=== PATIENT | male | born 1985 | race Caucasian/White ===

== ENCOUNTER 2018-05-23 07:08 | Day surgery (SDC) | payer BC ==
[2018-05-23] MEDS ORDERED: PROPOFOL 60 ML (08:34)
[2018-05-23] MEDS ORDERED: LIDOCAINE 2% (SDV) 5 ML INJ (08:34)
== END 2018-05-23 15:29 | disposition home or self-care (01) ==
LOC: GIL 07:08
DX: D12.5 Benign neoplasm of sigmoid colon (principal); K21.0 Gastro-esophageal reflux disease with esophagitis; K29.70 Gastritis, unspecified, without bleeding; K64.8 Other hemorrhoids
CPT/HCPCS: 43239; 88305; 88312

== ENCOUNTER 2018-06-02 20:32 | Observation (INO) | payer BC ==
[2018-06-02 23:47] LABS: ADD MAN DIFF? NO
[2018-06-02 23:48] LABS: BASOPHILS % 0.4 % (0.0-2.0); EOSINOPHILS # 0.1 10^3/ul (0.0-0.5); EOSINOPHILS % 1.3 % (0.0-7.0); HEMOGLOBIN 13.7 g/dl (14.0-18.0); LYMPHOCYTES # 2.8 10^3/ul (0.8-2.9); LYMPHOCYTES % 40.1 % (15.0-51.0); MEAN CORPUSCULAR HEMOGLOBIN 26.3 pg (29.0-33.0); MEAN CORPUSCULAR HGB CONC 32.6 g/dl (32.0-37.0); MEAN CORPUSCULAR VOLUME 80.6 fl (82.0-101.0); MONOCYTE # 0.5 10^3/ul (0.3-0.9); MONOCYTES % 7.2 % (0.0-11.0); NEUTROPHIL # 3.6 10^3/ul (1.6-7.5); NEUTROPHILS % 50.4 % (39.0-77.0); PLATELET COUNT 178 10^3/UL (140-415); RED BLOOD COUNT 5.21 10^6/ul (4.70-6.10); RED CELL DISTRIBUTION WIDTH 12.9 % (11.5-14.5)
[2018-06-02 23:48] LABS: WHITE BLOOD COUNT 7.1 10^3/ul (4.8-10.8)
[2018-06-02] MEDS: SOD CHLORIDE 0.9% 1,000 ML IV (23:50)
[2018-06-03 00:07] LABS: ALANINE AMINOTRANSFERASE 79 IU/L (13-69); ALBUMIN 4.7 g/dl (3.3-4.9); ALBUMIN/GLOBULIN RATIO 2.04; ALKALINE PHOSPHATASE 44 IU/L (42-121); ANION GAP 12 (5-13); ASPARTATE AMINO TRANSFERASE 37 IU/L (15-46); BILIRUBIN,INDIRECT 0.5 mg/dl (0-1.1); BILIRUBIN,TOTAL 0.5 mg/dl (0.2-1.3); BLOOD UREA NITROGEN 17 mg/dl (7-20); CALCIUM 9.2 mg/dl (8.4-10.2); CARBON DIOXIDE 28 mmol/L (21-31); CHLORIDE 102 mmol/L (97-110); CREATININE 1.02 mg/dl (0.61-1.24); Estimated GFR > 60 mL/min (>60); GLUCOSE 100 mg/dl (70-220); LIPASE 90 U/L (23-300); POTASSIUM 4.2 mmol/L (3.5-5.1); SODIUM 142 mmol/L (135-144)
[2018-06-03 00:08] LABS: INR 0.92; PARTIAL THROMBOPLASTIN TIME 25.5 Sec (23.0-35.0); PROTIME 12.4 Sec (11.9-14.9)
[2018-06-03] MEDS: DEXTROSE 5%-0.45% NACL 1,000 ML IV ×3 (03:08→13:00)
[2018-06-03] MEDS: PEG/ELECTROLYTES 4L BTL PO (04:30)
[2018-06-03] MEDS: METOCLOPRAMIDE 10 MG INJ IV (06:48)
[2018-06-03] MEDS ORDERED: NACL 0.9% 3 ML SYG IV (07:30)
[2018-06-03 07:54] LABS: ADD MAN DIFF? NO
[2018-06-03 08:00] LABS: BASOPHILS % 0.3 % (0.0-2.0); EOSINOPHILS # 0.1 10^3/ul (0.0-0.5); EOSINOPHILS % 1.4 % (0.0-7.0); HEMATOCRIT 37.1 % (42.0-52.0); HEMOGLOBIN 12.2 g/dl (14.0-18.0); LYMPHOCYTES # 1.9 10^3/ul (0.8-2.9); LYMPHOCYTES % 32.5 % (15.0-51.0); MEAN CORPUSCULAR HEMOGLOBIN 26.5 pg (29.0-33.0); MEAN CORPUSCULAR HGB CONC 32.9 g/dl (32.0-37.0); MEAN CORPUSCULAR VOLUME 80.5 fl (82.0-101.0); MONOCYTE # 0.4 10^3/ul (0.3-0.9); MONOCYTES % 7.1 % (0.0-11.0); NEUTROPHIL # 3.4 10^3/ul (1.6-7.5); NEUTROPHILS % 58.4 % (39.0-77.0); PLATELET COUNT 165 10^3/UL (140-415); RED BLOOD COUNT 4.61 10^6/ul (4.70-6.10)
[2018-06-03 08:00] LABS: WHITE BLOOD COUNT 5.9 10^3/ul (4.8-10.8)
[2018-06-03 08:26] LABS: ALANINE AMINOTRANSFERASE 69 IU/L (13-69); ALBUMIN 3.6 g/dl (3.3-4.9); ALBUMIN/GLOBULIN RATIO 1.56; ALKALINE PHOSPHATASE 34 IU/L (42-121); ANION GAP 8 (5-13); ASPARTATE AMINO TRANSFERASE 30 IU/L (15-46); BLOOD UREA NITROGEN 13 mg/dl (7-20); CALCIUM 8.1 mg/dl (8.4-10.2); CARBON DIOXIDE 26 mmol/L (21-31); CHLORIDE 105 mmol/L (97-110); CREATININE 0.85 mg/dl (0.61-1.24); Estimated GFR > 60 mL/min (>60); GLUCOSE 104 mg/dl (70-220); POTASSIUM 3.5 mmol/L (3.5-5.1); SODIUM 139 mmol/L (135-144); TOTAL PROTEIN 5.9 g/dl (6.1-8.1)
[2018-06-03] MEDS: ONDANSETRON 4 MG INJ IV (09:57)
[2018-06-03] MEDS: PROPOFOL 40 ML (12:23)
[2018-06-03] MEDS: FAMOTIDINE 20 MG TAB PO (19:42)
[2018-06-03] MEDS: HYDROCODONE/APAP (5/325) TAB PO (19:42)
[2018-06-04] MEDS: ONDANSETRON 4 MG INJ IV (01:56)
[2018-06-04 05:07] LABS: ADD MAN DIFF? NO
[2018-06-04 05:12] LABS: WHITE BLOOD COUNT 6.8 10^3/ul (4.8-10.8)
[2018-06-04 05:12] LABS: BASOPHILS % 0.4 % (0.0-2.0); EOSINOPHILS # 0.1 10^3/ul (0.0-0.5); EOSINOPHILS % 1.8 % (0.0-7.0); HEMATOCRIT 38.4 % (42.0-52.0); HEMOGLOBIN 12.5 g/dl (14.0-18.0); LYMPHOCYTES # 2.4 10^3/ul (0.8-2.9); LYMPHOCYTES % 35.7 % (15.0-51.0); MEAN CORPUSCULAR HEMOGLOBIN 26.2 pg (29.0-33.0); MEAN CORPUSCULAR HGB CONC 32.6 g/dl (32.0-37.0); MEAN CORPUSCULAR VOLUME 80.5 fl (82.0-101.0); MEAN PLATELET VOLUME 10.2 fl (7.4-10.4); MONOCYTE # 0.5 10^3/ul (0.3-0.9); MONOCYTES % 6.8 % (0.0-11.0); NEUTROPHIL # 3.7 10^3/ul (1.6-7.5); NEUTROPHILS % 54.9 % (39.0-77.0); PLATELET COUNT 188 10^3/UL (140-415); RED BLOOD COUNT 4.77 10^6/ul (4.70-6.10)
[2018-06-04 05:51] LABS: ANION GAP 7 (5-13); BLOOD UREA NITROGEN 8 mg/dl (7-20); CALCIUM 8.8 mg/dl (8.4-10.2); CARBON DIOXIDE 29 mmol/L (21-31); CHLORIDE 104 mmol/L (97-110); Estimated GFR > 60 mL/min (>60); GLUCOSE 91 mg/dl (70-220); MAGNESIUM 2.1 mg/dl (1.7-2.5); PHOSPHORUS 4.4 mg/dl (2.5-4.9); POTASSIUM 4.1 mmol/L (3.5-5.1); SODIUM 140 mmol/L (135-144)
[2018-06-04] MEDS: PANTOPRAZOLE 40 MG INJ IV (06:30)
[2018-06-04 15:22] LABS: ALANINE AMINOTRANSFERASE 70 IU/L (13-69); ALBUMIN 4.2 g/dl (3.3-4.9); ALKALINE PHOSPHATASE 38 IU/L (42-121); ASPARTATE AMINO TRANSFERASE 27 IU/L (15-46); BILIRUBIN,INDIRECT 0.2 mg/dl (0-1.1); BILIRUBIN,TOTAL 0.2 mg/dl (0.2-1.3); TOTAL PROTEIN 5.9 g/dl (6.1-8.1)
== END 2018-06-04 16:10 | disposition home or self-care (01) ==
LOC: MS1 06-03 00:09 → E/R 20:32
DX: K62.5 Hemorrhage of anus and rectum (principal); K63.5 Polyp of colon; K29.70 Gastritis, unspecified, without bleeding; R10.11 Right upper quadrant pain
CPT/HCPCS: 36415; 76705; 80048; 80053; 80076; 83690; 83735; 84100; 85025; 85610; 85730; 99285-25